=== PATIENT | female | born 1960 | race Caucasian/White ===

== ENCOUNTER 2019-12-18 06:49 | Emergency (ER) | payer OTHER ==
--- OUTSIDE RECORDS SUMMARY | 2019-12-18 06:51 | XMS REPORT ---
:1960 Author Organization [facility] t Address [facility] [address] Dr. Swenson [address] [place] [id number] Care Team Providers Name Role Phone Unavailable Unavailable Unavailable Problems This patient has no known problems. Allergies, Adverse Reactions, Alerts This patient has no known allergies or adverse reactions. Medications This patient has no known medications. Procedures This patient has no known procedures. Encounters Start End Encounter Admission Attending Care Care Encounter Source Date/Time Date/Time Type Type Clinicians Facility Department ID 2019-07-07 Inpatient [id number] [facility] 08:48:00 2019-03-31 2019-03-31 Outpatient [id number] [facility] 08:24:00 08:24:00 2019-03-11 2019-03-11 Outpatient [id number] [facility] 09:45:00 09:45:00 Results This patient has no known results.
[2019-12-18 08:15] LABS: Absolute Lymphocytes (CBC) 1.9 K/uL (0.7-4.9); Basophils % 0.9 % (0-1.3); Hematocrit 42.6 % (36.0-45.0); MPV 8.3 fL (7.6-11.3); RBC Red Blood Cell Count 4.64 M/uL (3.86-4.86)
[2019-12-18 08:19] LABS: Protime INR 1.1
[2019-12-18 08:43] LABS: ALT/SGPT 31 U/L (12-78); AST/SGOT 45 U/L (15-37); Albumin 3.2 g/dL (3.4-5.0); Alkaline Phosphatase 120 U/L (45-117); BUN Blood Urea Nitrogen 8 mg/dL (7-18); Bicarbonate 30 mmol/L (21-32); Bilirubin Direct < 0.1 mg/dL (0-0.2); Bilirubin Total 0.5 mg/dL (0.2-1.0); Glucose Level 123 mg/dL (74-106); Lipase 64 U/L (73-393); Magnesium 2.7 mg/dL (1.8-2.4); NT PRO-BNP 198 pg/mL (<125); Potassium 3.6 mmol/L (3.5-5.1); Protein, Total 7.7 g/dL (6.4-8.2); Sodium Level 137 mmol/L (136-145); Troponin (Emerg Dept Use Only) < 0.02 ng/mL (0.0-0.045)
[2019-12-18] MEDS ORDERED: ONDANSETRON 4 MG/2 ML VIAL ONE (08:45)
[2019-12-18] MEDS ORDERED: MORPHINE 2 MG/ML SYR ONE (08:45)
[2019-12-18] MEDS ORDERED: NA CHLORIDE 0.9% 1,000 ML ONE (08:45)
[2019-12-18] MEDS ORDERED: FAMOTIDINE 20 MG/2 ML VIAL IV ONE (08:46)
--- NOTE | 2019-12-18 08:50 | RAD REPORT ---
EXAM DESCRIPTION: RAD - Chest Single View - 12/18/2019 8:28 am CLINICAL HISTORY: ABDOMINAL DISTENTION COMPARISON: Portable July 2008 TECHNIQUE: AP portable chest image was obtained 12/18/2019 8:28 am . FINDINGS: Lungs are clear. Heart and vasculature are normal. No measurable pleural effusion and no p neumothorax. No acute bony abnormality seen. No acute aortic findings suspected. IMPRESSION: No acute cardiopulmonary process. No worrisome change from comparison.
[2019-12-18 10:45] LABS: Urine Blood NEGATIVE (NEG); Urine Glucose NEGATIVE (NEG); Urine Protein NEGATIVE (NEG)
--- NOTE | 2019-12-18 10:58 | RAD REPORT ---
EXAM DESCRIPTION: CT - Abdomen Pelvis W Contrast - 12/18/2019 10:27 am CLINICAL HISTORY: ABD PAIN, gastric bypass June 2019 COMPARISON: No comparisons TECHNIQUE: Biphasic, helical CT imaging of the abdomen and pelvis was performed following 100 ml non -ionic IV contrast. Oral contrast was given. All CT scans are performed using dose optimization technique as appropriate and may include automated exposure control or mA/KV adjustment according to patient size. FINDINGS: No suspicious findings in the lung bases. Liver size is normal. Mild diffuse fatty infiltration present with no focal liver lesion. Portal vein enhances normally. No pancreatic or peripancreatic abnormality. Spleen is unremarkable. Gallbladder is absent. No biliary tree dilatation. Symmetric renal function is seen with no hydronephrosis or suspicious renal mass. No pyelonephritis o r acute parenchymal process. Urinary bladder is fully contracted limiting assessment. Pelvic floor la xity is evident. Uterus and ovaries show no suspicious findings. Small calcified fibroid in the right fundus. No adrenal abnormalities. Gastric bypass surgical changes are present. The stomach small bowel anastomosis shows mildly promine nt patino. There may be mild edema of the patino at the anastomotic site. Mucosal fold pattern is diffi cult to assess. The stomach does not get fully distended in the setting of bypass. Gastric antrum and duodenal bulb show no suspicious findings. There is no delay in transit of contrast out of the stoma ch into the bowel. No transit abnormality. Contrast has reached the distal rectum. Contrast was given approximately 90 minutes before image acquisition. No dilated small bowel loops. The distal small bowel anastomosis shows no suspicious finding. No colo n abnormality seen. The appendix is normal. No free air, free fluid or inflammatory stranding. No mass or bulky lymphadenopathy. A small fat o nly umbilical hernia is present. No suspicious bony findings. IMPRESSION: No bowel obstruction, free air or surgically emergent finding. Patino of the stomach in small bowel at the bypassed anastomotic site are prominent. There may be mild edema in this region. Mucosal and wall assessment are difficult to determine because the stomach and small bowel are not optimally distended in the setting of bypass. There is no delay in transit from the stomach into the bowel. No overall bowel transit abnormality. C ontrast reached the distal rectum in 90 minutes which is well within normal range. No acute finding. No GUM MACHINE OPERATOR abnormality of significance. Diffuse fatty infiltration of the liver. Gallbladder is absent. Biliary tree is normal.
[2019-12-18 12:36] VITALS: TEMP 98
[2019-12-18 12:41] VITALS: O2SAT 100
[2019-12-18 12:43] VITALS: BP 152/89
--- NOTE | 2019-12-19 12:59 | EKG ---
Test Date: 2019-12-18 Test Time: 08:51:51 Fire Equipment Inspector Helper: TESSA MEASUREMENT RESULTS: Intervals: Rate: 91 MO: 118 QRSD: 82 QT: 388 QTc: 477 [place]: P: 57 MO: 118 QRS: 23 T: -16 INTERPRETIVE STATEMENTS: Normal sinus rhythm Nonspecific T wave abnormality Prolonged QT Abnormal ECG Electronically Signed On 12-19-19 12:58:50 CDT by Uday Hobson
--- NOTE | 2019-12-21 16:55 | EDPHYS ---
Physician Documentation [facility] Name: Cecy Mosher Age: 59 yrs Sex: Female : 1960 Arrival Date: 12/18/2019 Time: 06:50 Bed 18 Private MD: ED Physician Davon Olmstead HPI: 12/17 08:16 This 59 yrs old Female presents to ER via Ambulatory with complaints of brittany Vomiting. 08:16 The patient presents to the emergency department with nausea, vomiting, abdominal pain, brittany of the epigastric area, right upper quadrant and left upper quadrant. Onset: The symptoms/episode began/occurred 5 day(s) ago. Possible causes: gastric bypass. The symptoms are aggravated by movement, food , The symptoms are alleviated by nothing. remaining still. Associated signs and symptoms: Pertinent positives: abdominal pain, nausea, vomiting. Severity of symptoms: At their worst the symptoms were moderate in the emergency department the symptoms are unchanged. The patient has not experienced similar symptoms in the past. Historical: - Allergies: 07:18 No Known Allergies; ph - PMHx: 07:18 Hypothyroidism; Hypertension; ph - PSHx: 07:18 Cholecystectomy; ACHILLES TENDON RUPTURE; Gastric Bypass; ph - Immunization history:: Adult Immunizations unknown. - Social history:: Smoking status: Patient denies any tobacco usage or history of. - Family history:: not pertinent. ROS: 08:16 Constitutional: Negative for fever, chills, and weight loss, Eyes: Negative for injury, brittany pain, redness, and discharge, ENT: Negative for injury, pain, and discharge, Neck: Negative for injury, pain, and swelling, Cardiovascular: Negative for chest pain, palpitations, and edema, Respiratory: Negative for shortness of breath, cough, wheezing, and pleuritic chest pain, Back: Negative for injury and pain, : Negative for injury, bleeding, discharge, and swelling, MS/Extremity: Negative for injury and deformity, Skin: Negative for injury, rash, and discoloration, Neuro: Negative for headache, weakness, numbness, tingling, and seizure, Psych: Negative for depression, anxiety, suicide ideation, homicidal ideation, and hallucinations, Allergy/Immunology: Negative for hives, rash, and allergies, Endocrine: Negative for neck swelling, polydipsia, polyuria, polyphagia, and marked weight changes, Hematologic/Lymphatic: Negative for swollen nodes, abnormal bleeding, and unusual bruising. 08:16 Abdomen/GI: Positive for abdominal pain, nausea and vomiting. Exam: 08:16 Constitutional: This is a well developed, well nourished patient who is awake, alert, brittany and in no acute distress. Head/Face: Normocephalic, atraumatic. Eyes: Pupils equal round and reactive to light, extra-ocular motions intact. Lids and lashes normal. Conjunctiva and sclera are non-icteric and not injected. Cornea within normal limits. Periorbital areas with no swelling, redness, or edema. ENT: Nares patent. No nasal discharge, no septal abnormalities noted. Tympanic membranes are normal and external auditory canals are clear. Oropharynx with no redness, swelling, or masses, exudates, or evidence of obstruction, uvula midline. Mucous membranes moist. Neck: Trachea midline, no thyromegaly or masses palpated, and no cervical lymphadenopathy. Supple, full range of motion without nuchal rigidity, or vertebral point tenderness. No Meningismus. Chest/axilla: Normal chest wall appearance and motion. Nontender with no deformity. No lesions are appreciated. Cardiovascular: Regular rate and rhythm with a normal S1 and S2. No gallops, murmurs, or rubs. Normal PMI, no JVD. No pulse deficits. Respiratory: Lungs have equal breath sounds bilaterally, clear to auscultation and percussion. No rales, rhonchi or wheezes noted. No increased work of breathing, no retractions or nasal flaring. Back: No spinal tenderness. No costovertebral tenderness. Full range of motion. Female : Normal external genitalia. Skin: Warm, dry with normal turgor. Normal color with no rashes, no lesions, and no evidence of cellulitis. MS/ Extremity: Pulses equal, no cyanosis. Neurovascular intact. Full, normal range of motion. Neuro: Awake and alert, GCS 15, oriented to person, place, time, and situation. Cranial nerves II-XII grossly intact. Motor strength 5/5 in all extremities. Sensory grossly intact. Cerebellar exam normal. Normal gait. Psych: Awake, alert, with orientation to person, place and time. Behavior, mood, and affect are within normal limits. 08:16 Abdomen/GI: Inspection: distension, Bowel sounds: normal, Palpation: mild abdominal tenderness, moderate abdominal tenderness, in the epigastric area, right upper quadrant and left upper quadrant, Liver: no appreciated palpable abnormalities, Hernia: not appreciated. 08:58 ECG was reviewed by the Attending Physician. [facility] [place] Vital Signs: 07:14 BP 160 / 96; Pulse 93; Resp 18; Temp 98.0; Pulse Ox 96% on R/A; Weight 104.33 kg; ph Height 5 ft. 5 in. (165.10 cm); Pain 9/10; 09:13 BP 147 / 86; Pulse 84; Resp 18; Pulse Ox 96% on R/A; ph 10:52 BP 151 / 90; Pulse 73; Resp 15 S; Pulse Ox 99% on R/A; ca1 11:11 BP 156 / 98; Pulse 74; Resp 16 S; Pulse Ox 98% on R/A; ca1 12:07 BP 166 / 102; Pulse 73; Resp 15 S; Pulse Ox 100% on R/A; ca1 12:18 BP 152 / 89; Pulse 76; Resp 16 S; Pulse Ox 100% on R/A; ca1 07:14 Body Mass Index 38.27 (104.33 kg, 165.10 cm) ph MDM: 07:13 Patient medically screened. [facility] [place] 08:19 Data reviewed: vital signs, nurses notes, lab test result(s), EKG, radiologic studies, [facility] CT scan, plain films. 08:19 Differential diagnosis: Nonspecific abd pain, gastritis, pancreatitis, diverticulitis, brittany gastroenteritis. Data interpreted: security monitor: rate is 93 beats/min, Pulse oximetry: on room air is 96 %. Test interpretation: by ED physician or midlevel provider: ECG, plain radiologic studies. Counseling: I had a detailed discussion with the patient and/or guardian regarding: the historical points, exam findings, and any diagnostic results supporting the discharge/admit diagnosis, the presence of at least one elevated blood pressure reading (>120/80) during this emergency department visit, lab results, radiology results. Medication response: Zofran markedly relieved the patient's nausea. 12:06 Physician consultation:. ED course: dr kaur talked with, will see on , brittany scheduled for gi , egd this week, give protonix and bentyl. 12/17 07:57 Order name: Basic Metabolic Panel; Complete Time: 09:20 ph 12/17 07:57 Order name: CBC with Diff; Complete Time: 09:20 ph 12/17 07:57 Order name: LFT's; Complete Time: 09:20 ph 12/17 07:57 Order name: Magnesium; Complete Time: 09:20 ph 12/17 07:57 Order name: NT PRO-BNP; Complete Time: 09:20 ph 12/17 07:57 Order name: PT-INR; Complete Time: 09:20 ph 12/17 07:57 Order name: Troponin (emerg Dept Use Only); Complete Time: 09:20 ph 12/17 07:57 Order name: XRAY Chest (1 view); Complete Time: 09:20 ph 12/17 07:57 Order name: Lipase; Complete Time: 09:20 ph 12/17 08:16 Order name: CT Abd/Pelvis - PO and IV Contrast: gastric bypass protocol; Complete Time: brittany 11:12/17 10:33 Order name: Urine Dipstick--Ancillary (enter results); Complete Time: 11:22 bd 12/17 07:57 Order name: EKG; Complete Time: 07:58 ph 12/17 07:57 Order name: Cardiac monitoring; Complete Time: 08:31 ph 12/17 07:57 Order name: EKG - Nurse/Tech; Complete Time: 08:53 ph 12/17 07:57 Order name: IV Saline Lock; Complete Time: 08:53 ph 12/17 07:57 Order name: Labs collected and sent; Complete Time: 08:31 ph 12/17 07:57 Order name: O2 Per Protocol; Complete Time: 08:31 ph 12/17 07:57 Order name: O2 Sat Monitoring; Complete Time: 08: ph 12/17 08:16 Order name: Urine Dipstick-Ancillary (obtain specimen); Complete Time: 10:30 brittany EC:58 Rate is 91 beats/min. Rhythm is regular. QRS Grover is Normal. MI interval is normal. QRS brittany interval is normal. QT interval is prolonged at 388 msec. No Q waves. T waves are Normal. No ST changes noted. Clinical impression: NSR w/ Non-specific ST/T Changes and No evidence of ischemia. Interpreted by me. Reviewed by me. Administered Medications: 08:46 Drug: NS 0.9% 1000 ml Route: IV; Rate: 1 bolus; Site: left antecubital; 11:00 Follow up: Response: No adverse reaction; IV Status: Completed infusion ca1 08:46 Drug: Zofran (Ondansetron) 4 mg Route: IVP; Site: left antecubital; ss 09:14 Follow up: Response: No adverse reaction ph 08:50 Drug: Pepcid 20 mg Route: IVP; Site: left antecubital; ss 09:14 Follow up: Response: No adverse reaction ph 08:53 Drug: morphine 2 mg Route: IVP; Site: left antecubital; ss 09:14 Follow up: Response: No adverse reaction; Pain is decreased; RASS: Alert and Calm (0) ph Disposition: 12/18/19 12:10 Discharged to Home. Impression: Abdominal tenderness, Gastritis, unspecified, Vomiting. - Condition is Stable. - Discharge Instructions: Abdominal Pain, Adult, Gastritis, Adult, Gastritis, Adult, [id number], Nausea and Vomiting, Adult, [id number], Abdominal Pain, Adult, [id number]-Tamw. - Prescriptions for Bentyl 20 mg Oral Tablet - take 1 tablet by ORAL route every 6 hours As needed; 20 tablet. Protonix 40 mg Oral Tablet, Delayed Release (E.C.) - take 1 tablet by ORAL route once daily; 20 tablet. Zofran 4 mg Oral Tablet - take 1 tablet by ORAL route every 12 hours As needed; 20 tablet. - Medication Reconciliation Form, Thank You Letter, Antibiotic Education, Prescription Opioid Use form. - Follow up: Private Physician; When: 1 - 2 days; Reason: Recheck today's complaints, Continuance of care, Re-evaluation by your physician. - Problem is new. - Symptoms have improved. Signatures: Dispatcher [employer] EDWA Davon Olmstead MD MD cha Smirch, Shelby, RN RN ss Ana Bains RN RN ph Sidra Lira RN RN ca1 Corrections: (The following items were deleted from the chart) 12:28 12:10 12/18/2019 12:10 Discharged to Home. Impression: Abdominal tenderness; Gastritis, ca1 unspecified; Vomiting. Condition is Stable. Forms are Medication Reconciliation Form, Thank You Letter, Antibiotic Education, Prescription Opioid Use. Follow up: Private Physician; When: 1 - 2 days; Reason: Recheck today's complaints, Continuance of care, Re-evaluation by your physician. Problem is new. Symptoms have improved. brittany
--- NOTE | 2019-12-21 16:55 | ER ---
Nurse's Notes [facility] Name: Cecy Mosher Age: 59 yrs Sex: Female : 1960 Arrival Date: 12/18/2019 Time: 06:50 Bed 18 Private MD: Diagnosis: Abdominal tenderness;Gastritis, unspecified;Vomiting Presentation: 12/17 07:14 Chief complaint: Patient states: Had gastric bypass sx in Jun,states, " I have had a ph lot of vomiting the past three months and I am having a hard time keeping things down, 2 days ago I started having a lot of pain in my upper abdomen that goes through to my back." Denies fever or diarrhea, has follow up w/ surgeon on January 07. Coronavirus screen: Patient denies a cough. Patient denies shortness of breath or difficulty breathing. Patient denies measured and/or subjective temperature greater than 100.4F prior to today's visit. Patient denies travel on a cruise ship or to a country the [facility] 2[place] currently lists as an affected area. Patient denies contact with known and/or suspected case of COVID-19. Ebola Screen: No symptoms or risks identified at this time. Initial Sepsis Screen: Does the patient meet any 2 criteria? No. Patient's initial sepsis screen is negative. Does the patient have a suspected source of infection? No. Patient's initial sepsis screen is negative. Risk Assessment: Do you want to hurt yourself or someone else? Patient reports no desire to harm self or others. Onset of symptoms was December 18, 2019. 07:14 Method Of Arrival: Ambulatory ph 07:14 Acuity: WAGNER 3 ph Historical: - Allergies: 07:18 No Known Allergies; ph - PMHx: 07:18 Hypothyroidism; Hypertension; ph - PSHx: 07:18 Cholecystectomy; ACHILLES TENDON RUPTURE; Gastric Bypass; ph - Immunization history:: Adult Immunizations unknown. - Social history:: Smoking status: Patient denies any tobacco usage or history of. - Family history:: not pertinent. Screenin:18 Abuse screen: Denies threats or abuse. Denies injuries from another. Nutritional ph screening:. Tuberculosis screening: No symptoms or risk factors identified. Fall Risk None identified. Assessment: 07:21 General: Appears in no apparent distress. uncomfortable, obese, well groomed, Behavior ph is calm, cooperative, appropriate for age, Denies fever. Pain: Complains of pain in epigastric area Pain radiates to back. Neuro: Level of Consciousness is awake, alert, obeys commands, Oriented to person, place, time, situation. Cardiovascular: Capillary refill < 3 seconds in bilateral fingers Patient's skin is warm and dry. Respiratory: Airway is patent Respiratory effort is even, unlabored. GI: Abdomen is non-distended, obese, Reports upper abdominal pain, epigastric pain, nausea, vomiting. Derm: Skin is intact, Skin is pink, warm \\T\\ dry. Musculoskeletal: Circulation, motion, and sensation intact. Range of motion: intact in all extremities. 08:54 General: Appears uncomfortable, Behavior is calm, cooperative. Pain: Complains of pain ss in abdomen Pain currently is 8 out of 10 on a pain scale. Neuro: Level of Consciousness is awake, alert. 09:12 Reassessment: Patient appears in no apparent distress at this time. Patient and/or ph family updated on plan of care and expected duration. Pain level reassessed. Patient is alert, oriented x 3, equal unlabored respirations, skin warm/dry/pink. Pt drank PO contrast, CT notified, pt reports that pain has decreased to 5/10, denies nausea, awaiting CT scan. 10:10 Reassessment: Patient appears in no apparent distress at this time. Patient and/or ca1 family updated on plan of care and expected duration. Pain level reassessed. Patient is alert, oriented x 3, equal unlabored respirations, skin warm/dry/pink. 11:11 Reassessment: Patient appears in no apparent distress at this time. Patient and/or ca1 family updated on plan of care and expected duration. Pain level reassessed. Patient is alert, oriented x 3, equal unlabored respirations, skin warm/dry/pink. 12:18 Reassessment: Patient appears in no apparent distress at this time. Patient is alert, ca1 oriented x 3, equal unlabored respirations, skin warm/dry/pink. Vital Signs: 07:14 BP 160 / 96; Pulse 93; Resp 18; Temp 98.0; Pulse Ox 96% on R/A; Weight 104.33 kg; ph Height 5 ft. 5 in. (165.10 cm); Pain 9/10; 09:13 BP 147 / 86; Pulse 84; Resp 18; Pulse Ox 96% on R/A; ph 10:52 BP 151 / 90; Pulse 73; Resp 15 S; Pulse Ox 99% on R/A; ca1 11:11 BP 156 / 98; Pulse 74; Resp 16 S; Pulse Ox 98% on R/A; ca1 12:07 BP 166 / 102; Pulse 73; Resp 15 S; Pulse Ox 100% on R/A; ca1 12:18 BP 152 / 89; Pulse 76; Resp 16 S; Pulse Ox 100% on R/A; ca1 07:14 Body Mass Index 38.27 (104.33 kg, 165.10 cm) ph ED Course: 06:50 Patient arrived in ED. cl3 07:13 Davon Olmstead MD is Attending Physician. brittany 07:14 Ana Bains, RN is Primary Nurse. ph 07:17 Triage completed. ph 07:19 Arm band placed on Patient placed in an exam room, on a stretcher. ph 07:19 Patient has correct armband on for positive identification. Bed in low position. Call ph light in reach. Side rails up X 1. Pulse ox on. NIBP on. Door closed. Noise minimized. Warm blanket given. 08:29 XRAY Chest (1 view) In Process Unspecified. EDMS 08:54 Inserted saline lock: 20 gauge in left antecubital area, using aseptic technique. Blood ss collected. 09:11 EKG done, by licensed veterinary technician. reviewed by Davon Olmstead MD. tc 10:27 CT Abd/Pelvis - PO and IV Contrast: gastric bypass protocol In Process Unspecified. EDMS 12:19 No provider procedures requiring assistance completed. IV discontinued, intact, ca1 bleeding controlled, No redness/swelling at site. Pressure dressing applied. Administered Medications: 08:46 Drug: NS 0.9% 1000 ml Route: IV; Rate: 1 bolus; Site: left antecubital; ss 11:00 Follow up: Response: No adverse reaction; IV Status: Completed infusion ca1 08:46 Drug: Zofran (Ondansetron) 4 mg Route: IVP; Site: left antecubital; ss 09:14 Follow up: Response: No adverse reaction ph 08:50 Drug: Pepcid 20 mg Route: IVP; Site: left antecubital; ss 09:14 Follow up: Response: No adverse reaction ph 08:53 Drug: morphine 2 mg Route: IVP; Site: left antecubital; ss 09:14 Follow up: Response: No adverse reaction; Pain is decreased; RASS: Alert and Calm (0) ph Outcome: 12:10 Discharge ordered by . brittany 12:19 Discharged to home ambulatory. ca1 12:19 Condition: stable 12:19 Discharge instructions given to patient, Instructed on discharge instructions, follow up and referral plans. medication usage, Demonstrated understanding of instructions, follow-up care, medications, Prescriptions given X 3. 12:28 Patient left the ED. ca1 Signatures: Dispatcher [employer] EDMS Davon Olmstead MD MD cha Smirch, Shelby, RN RN Clara Reagan, cell feed department supervisor EKG Ana Chou RN RN Sidra Lira RN RN [facility] Tequila Nugent cl3
== END 2019-12-18 12:28 | disposition home or self-care (01) ==
LOC: ER 06:49
DX: K29.70 Gastritis, unspecified, without bleeding (principal); R11.2 Nausea with vomiting, unspecified; I10 Essential (primary) hypertension
CPT/HCPCS: 96361; 93005; 85025; 80048; 36415; 83735; 85610; 80076; 81003; 84484; 83690; 83880; 74177; 71045; 96375; 96374; 99284; Q9967; J2270; J7030; J2405